=== PATIENT | male | born 1940 | race Hispanic/Latino ===

== ENCOUNTER → 2018-07-17 | Outpatient (CLI) | payer MEDICARE | END | disposition home or self-care (01) | LOC: RAH 13:56 | PROVIDERS: ATTEND Orthopaedic Surgery | DX: S83.242A Other tear of medial meniscus, current injury, left knee, initial encounter (principal); S83.282A Other tear of lateral meniscus, current injury, left knee, initial encounter; X58.XXXA Exposure to other specified factors, initial encounter; Y93.89 Activity, other specified; Y92.89 Other specified places as the place of occurrence of the external cause; Y99.8 Other external cause status | CPT/HCPCS: 73721 ==

== ENCOUNTER 2018-11-24 07:08 | Day surgery (SDC) | payer MEDICARE ==
[2018-11-23 15:45] VITALS: BP 140/66
[2018-11-23 15:57] LABS: BASOPHILS % (AUTO) 0.3 % (0.0-5.0); HEMATOCRIT 42.4 % (42-54); MEAN CORPUSCULAR HEMOGLOBIN 33.1 pg (27.0-33.0); MEAN CORPUSCULAR HGB CONC 34.9 g/dL (32.0-36.0); MEAN CORPUSCULAR VOLUME 94.7 fL (79-99); MONOCYTES % (AUTO) 10.8 % (3.0-13.0); NEUTROPHILS % (AUTO) 71.9 % (40.0-77.0); PLATELET COUNT (AUTO) 181 K/uL (130-400); RED BLOOD CELL COUNT(AUTO) 4.47 MIL/uL (4.50-6.20); RED CELL DISTRIBUTION WIDTH 13.1 % (11.0-15.5)
--- NOTE | 2018-11-23 16:45 | NUR ---
HOME MEDS PATIENT STATES HE ONLY TAKES VITAMINS. INSTRUCTED PATIENT TO BRING THE VITAMINS IN THE MORNING IN ORIGINAL CONTAINERS.
[2018-11-24] VITALS (14 sets, daily range): BP systolic 125–149; BP diastolic 58–87
[~2018-11-24] VITALS: Ht 182.9 cm; Wt 87.4 kg
--- NOTE | 2018-11-24 07:25 | NUR ---
POTENTIAL FOR INFECTION: NO SHAVING NEEDED TO RIGHT KNEE / LEG VOICED PER DORIS FOUNTAIN MA. WIPED WITH GABRIELA: 2% CHLORHEXIDINE GLUCONATE CLOTH PATIENTS PRE-OP SKIN PREP.
[2018-11-24] MEDS ORDERED: FENTANYL CITRATE PF 50 MCG/1 ML 2ML VIAL ONE (08:15)
[2018-11-24] MEDS ORDERED: LIDOCAINE PF 2% 5ML ABBOJECT ONE (08:15)
[2018-11-24] MEDS ORDERED: PROPOFOL 10 MG/ML 20ML VIAL IV ONE (08:15)
[2018-11-24] MEDS ORDERED: LACTATED RINGERS 1000ML 1,000 ML IV ONE (08:29)
[2018-11-24] MEDS: CEFAZOLIN SODIUM 1 GM VIAL IVP SCH ×2 (08:30→09:15)
[2018-11-24] MEDS ORDERED: EPHEDRINE SULFATE 50 MG/ML AMPULE ONE (09:10)
[2018-11-24] MEDS ORDERED: OMEG-143 PO (09:52)
[2018-11-24] MEDS ORDERED: PYRI100T2 PO (09:52)
[2018-11-24] MEDS ORDERED: VITA400C70 PO (09:52)
[2018-11-24] MEDS ORDERED: GLUC-29 PO (09:52)
[2018-11-24] MEDS ORDERED: CHOL200013 PO (09:52)
[2018-11-24] MEDS ORDERED: CALC-1106 PO (09:52)
[2018-11-24] MEDS ORDERED: TYL3 PO (10:18)
[2018-11-24] MEDS ORDERED: CEPH500B PO (10:18)
[2018-11-24] MEDS ORDERED: MEPERIDINE-PF 25 MG/ML SYG ONE (10:37)
[2018-11-24] MEDS ORDERED: ONDANSETRON HCL 4 MG/2 ML VIAL ONE (10:41)
--- NOTE | 2018-11-24 11:19 | NUR ---
RECEIVE PT RECEIVED FROM PACU VIA STRETCHER AWAKE ALERT ORIENTED X3. DRESSING TO LEFT KNEE DRY AND INTACT, NO OOZING NO SWELLING NOTED. LEFT KNEE ELEVATED, ICE PACK APPLIED. PT STATES HE HAS A LITTLE NAUSEA. NO OTHER COMPLAINTS MADE. OFFERED ICE CHIPS. WILL CONTINUE TO MONITOR PT. CALL WEBB WITHIN REACH, FAMILY CAME IN TO ROOM.
--- NOTE | 2018-11-24 11:30 | NUR ---
ASSESS PT VERBALIZED RELIEF FROM NAUSEA AFTER ICE CHIPS, TOLERATED ICE CHIPS WELL. NO VOMITING NOTED.
--- NOTE | 2018-11-24 11:55 | NUR ---
DISCHARGE PT DISCHARGED VIA WHEELCHAIR WITH . PT STABLE. PT COMPLAINED OF MINIMAL NAUSEA EARLIER UPON SITTING UP TO CHANGE CLOTHES. NO VOMITING NOTED. PT CONTINUED WITH ICE CHIPS AND VERBALIZED RELIEF FROM NAUSEA AFTER ICE CHIPS. PT STATED HE IS OKAY AND IS READY TO GO HOME. NO OTHER COMPLAINTS MADE. DISCHARGE INSTRUCTIONS GIVEN TO EARLIER, VERBALIZED UNDERSTANDING. CRUTCHES AND HANDOUT PROVIDED. DRESSING TO LEFT KNEE REMAINS DRY AND INTACT,. NO OOZING NOTED.
== END 2018-11-24 11:55 | disposition home or self-care (01) ==
LOC: DAH 07:08
PROVIDERS: ATTEND Orthopaedic Surgery
DX: M23.222 Derangement of posterior horn of medial meniscus due to old tear or injury, left knee (principal); M23.252 Derangement of posterior horn of lateral meniscus due to old tear or injury, left knee; M94.262 Chondromalacia, left knee; G89.29 Other chronic pain; M17.12 Unilateral primary osteoarthritis, left knee; Z79.899 Other long term (current) drug therapy; Z98.890 Other specified postprocedural states; Z88.8 Allergy status to other drugs, medicaments and biological substances
CPT/HCPCS: 29881; 36415; 85025; A4606; A4649 ×2; A4930; A6223; J0690; J2001; J2175; J2405; J2704; J3010; J3490; J7120

== ENCOUNTER 2019-10-09 09:00 | Observation (INO) | payer OTHER ==
[~2019-10-09] VITALS: Ht 180.3 cm; Wt 79.8 kg
[2019-10-09 09:26] LABS: BASOPHILS % (AUTO) 0.5 % (0.0-5.0); HEMATOCRIT 41.8 % (42-54); LYMPHOCYTES % (AUTO) 25.6 % (21.0-51.0); MEAN CORPUSCULAR HGB CONC 34.4 g/dL (32.0-36.0); MEAN CORPUSCULAR VOLUME 92.9 fL (79-99); NEUTROPHILS % (AUTO) 58.5 % (40.0-77.0); PLATELET COUNT (AUTO) 172 K/uL (130-400); RED CELL DISTRIBUTION WIDTH 12.8 % (11.0-15.5); WHITE BLOOD COUNT (AUTO) 5.5 K/uL (4.8-10.8)
[2019-10-09 09:30] LABS: APPEARANCE,URINE Cloudy (CLEAR); BILIRUBIN,URINE Negative (NEGATIVE); COLOR,URINE Orange (YELLOW); GLUCOSE, URINE (UA) Negative (NEGATIVE); KETONES,URINE Negative (NEGATIVE); LEUKOCYTE ESTERASE ,URINE Small (NEGATIVE); NITRATE,URINE Negative (NEGATIVE); OCCULT BLOOD,URINE Large (NEGATIVE); PH,URINE 6.5 (5.0-8.0); PROTEIN,URINE POS 2+ mg/dL (NEGATIVE)
[2019-10-09 09:39] LABS: INR 1.01 (0.85-1.15); PROTHROMBIN TIME 10.9 SEC (9.6-11.6)
[2019-10-09 09:45] LABS: BACTERIA,URINE Few /HPF (None Seen); RBC,URINE TNTC /HPF (0-1); SQUAMOUS EPITHELIAL CELL,UR 0-2 /HPF (0-2)
[2019-10-09 09:46] VITALS: BP 150/78
--- NOTE | 2019-10-11 13:51 | NUR ---
UA AND URINE CULT(NO GROWTH) COLLECTED 10/09/[address] ROSE, NO NEW ORDERS
[2019-10-12] VITALS (20 sets, daily range): BP systolic 100–150; BP diastolic 59–89
[2019-10-12] MEDS: CEFAZOLIN SODIUM 1 GM VIAL IVP SCH ×4 (06:00→20:13)
[2019-10-12] MEDS ORDERED: LACTATED RINGERS 1000ML 1,000 ML IV ONE (07:05)
[2019-10-12] MEDS ORDERED: CEFAZOLIN SODIUM 1 GM VIAL ONE (08:59)
[2019-10-12] MEDS ORDERED: TRANEXAMIC ACID 1000MG/10ML ONE ×2 (08:59→14:27)
[2019-10-12] MEDS ORDERED: ROPIVACAINE 0.5% 5MG/ML 30ML IJ ONE ×2 (09:07→11:08)
[2019-10-12] MEDS ORDERED: KETAMINE 50MG/ML SYRINGE 50 MG/ML DISP.SYRIN IV ONE (09:08)
[2019-10-12] MEDS ORDERED: ACETAMINOPHEN EXTRA STRENGTH 500 MG TABLET ONE (09:19)
[2019-10-12] MEDS ORDERED: KETOROLAC TROMETHAMINE 15MG/ML ONE (09:19)
[2019-10-12] MEDS ORDERED: CELECOXIB 200 MG CAP ONE (09:20)
[2019-10-12] MEDS ORDERED: EPHEDRINE SULFATE 50 MG/ML AMPULE ONE ×2 (11:17→13:49)
[2019-10-12] MEDS ORDERED: FENTANYL CITRATE PF 50 MCG/1 ML 2ML VIAL ONE (12:05)
[2019-10-12] MEDS ORDERED: ROCURONIUM 10MG/1ML SYR 10 MG/ML ML ONE (12:05)
[2019-10-12] MEDS: ACETAMINOPHEN EXTRA STRENGTH 500 MG TABLET PO SCH ×2 (14:15→21:44)
[2019-10-12] MEDS ORDERED: KETOROLAC TROMETHAMINE 15MG/ML IV PRN (14:15)
[2019-10-12] MEDS ORDERED: FERROUS FUMARATE 324 MG TABLET PO PRN (14:15)
[2019-10-12] MEDS ORDERED: LIDOCAINE HCL-MPF 1% 2ML VIAL IV PRN (14:15)
[2019-10-12] MEDS ORDERED: TEMAZEPAM 15 MG CAPSULE PO PRN (14:15)
[2019-10-12] MEDS ORDERED: POTASSIUM CHLORIDE 20 MEQ ERTAB PO PRN (14:15)
[2019-10-12] MEDS ORDERED: OXYCODONE HCL 5 MG TAB PO PRN ×2 (14:15)
[2019-10-12] MEDS ORDERED: CALCIUM CARBONATE 500 MG TABLET PO PRN (14:15)
[2019-10-12] MEDS ORDERED: POTASSIUM CHLORIDE 20MEQ/100ML 100 ML IV PRN (14:15)
[2019-10-12] MEDS ORDERED: DiphenhydrAMINE HCL 50 MG/ML VIAL IVP PRN (14:15)
[2019-10-12] MEDS ORDERED: POTASSIUM CHLORIDE 10% ELIXIR 20 MEQ/15 ML UDCUP PO PRN (14:15)
[2019-10-12] MEDS: ONDANSETRON HCL 4 MG/2 ML VIAL IVP PRN (15:07)
--- NOTE | 2019-10-12 15:12 | NUR ---
DCP CM spoke to pt's spouse Katie Andrade [phone] discussed dc plans. Per spouse pt is independent prior to surgery, lives at home with spouse, daughter lives close by. Denies any equipment/services. Feels safe to go back home, still drives, spouse and daughter able to assist with transportation and needs as necessry. Discussed MD recommendations regarding home w/HH and DME, spouse agreeable, telephone consent JUNIOR obtained for [facility]. Pt currently still in PACU. Faxed facesheet, order, and MARS to [facility] for now, confirmation received. Pending to fax clinicals and PT once available. Pt pending approval for HH and DME standard walker no wheels and 3 in1 chair. CM to cont to follow up. Addendum: 10/12/19 at 1516 by AL MCCRACKEN LVN CM Amended: Links added.
--- NOTE | 2019-10-12 15:15 | NUR ---
Notified Francis Cho CRNA of pulse substaining in 50's , patient symptomatic vitals signs stable no new orders.
--- NOTE | 2019-10-12 16:37 | NUR ---
1547 patient signed CARLSON Letter, I faxed CARLSON Letter to [phone] and placed in chart under consent tab.
--- NOTE | 2019-10-12 16:49 | NUR ---
CM Note: HCD pending HH approval and DME approval & delivery CM faxed H&P, progress notes to [facility], confirmation received. Pt pending approval for Home Health as well as pending approval and delivery for standard walker no wheels and 3 in 1 chair. Primary nurse aware. CM to cont to follow up.
[2019-10-12] MEDS: SODIUM CHLORIDE 0.9% 1000ML 1,000 ML IV SCH ×2 (17:46→20:14)
[2019-10-12] MEDS: PREGABALIN 25 MG CAP PO SCH (20:13)
[2019-10-12] MEDS: CELECOXIB 200 MG CAP PO SCH (20:13)
[2019-10-12] MEDS: FAMOTIDINE 20MG TAB 20 MG TAB PO SCH (20:13)
[2019-10-12] MEDS: ASPIRIN 81MG TAB.CHEW PO SCH (20:14)
--- NOTE | 2019-10-12 21:45 | NUR ---
PT DANGLED AT BEDSIDE PT DANGLED AT BEDSIDE. PT GOT NAUSEOUS. PT REFUSED NAUSEA MEDICATION AND STATED THAT HE WANTED TO LIE BACK DOWN. PT DANGLED FOR APPROXIMATELY 10 MIN.
[2019-10-13] VITALS: BP 107/49
[2019-10-13 04:00] VITALS: BP 104/52
[2019-10-13] MEDS: CEFAZOLIN SODIUM 1 GM VIAL IVP SCH (04:45)
--- NOTE | 2019-10-13 05:00 | NUR ---
PT HAS NOT VOIDED. PT HAS NOT VOIDED POST SURGERY. PT STATES HE FEELS PRESSURE IN THE SUPRAPUBIC AREA. USING INFANT BABYSITTER, INSERTED 16F SOW TO RELIEVE PRESSURE AND REMOVE URINE. WILL LEAVE IN TO ALLOW BLADDER TO DRAIN.
[2019-10-13 05:20] LABS: HEMATOCRIT 33.3 % (42-54); MEAN CORPUSCULAR HEMOGLOBIN 31.4 pg (27.0-33.0); MEAN CORPUSCULAR HGB CONC 33.6 g/dL (32.0-36.0); MEAN CORPUSCULAR VOLUME 93.3 fL (79-99); RED BLOOD CELL COUNT(AUTO) 3.57 MIL/uL (4.50-6.20); RED CELL DISTRIBUTION WIDTH 12.9 % (11.0-15.5)
[2019-10-13 05:34] LABS: CREATININE 1.2 mg/dL (0.5-1.5); POTASSIUM 4.1 mmol/L (3.5-5.1)
--- NOTE | 2019-10-13 06:00 | NUR ---
SOW CATH REMOVED SOW CATH REMOVED. PT DRAINED 1300MLS FROM INITIAL INSERTION OF SOW CATH. PT STATES HE FEEL RELIEF OF PRESSURE.
[2019-10-13] MEDS: ONDANSETRON HCL 4 MG/2 ML VIAL IVP PRN (07:00)
[2019-10-13] MEDS: ACETAMINOPHEN EXTRA STRENGTH 500 MG TABLET PO SCH ×3 (07:01→21:46)
[2019-10-13] MEDS: TRAMADOL HCL 50 MG TABLET PO PRN (07:02)
[2019-10-13 08:01] VITALS: BP 107/58
[2019-10-13] MEDS: CELECOXIB 200 MG CAP PO SCH ×2 (09:33→21:46)
[2019-10-13] MEDS: FAMOTIDINE 20MG TAB 20 MG TAB PO SCH ×2 (09:34→21:45)
[2019-10-13] MEDS: PREGABALIN 25 MG CAP PO SCH ×2 (09:34→21:46)
[2019-10-13] MEDS: POLYETHYLENE GLYCOL 3350 17 GM POWD.PACK PO SCH (09:34)
[2019-10-13] MEDS: TAMSULOSIN HCL 0.4 MG CAP.ER.24H PO SCH (09:34)
[2019-10-13] MEDS: ASPIRIN 81MG TAB.CHEW PO SCH ×2 (09:34→21:45)
[2019-10-13] MEDS: SODIUM CHLORIDE 0.9% 1000ML 1,000 ML IV SCH (10:14)
[2019-10-13 11:43] VITALS: BP 99/45
--- NOTE | 2019-10-13 13:05 | NUR ---
CM NOTE [facility] States DME was delivered to patient yesterday. CM asked if home health approved. States she will page nurse to call CM back and verify.
[2019-10-13 16:02] VITALS: BP 91/46
--- NOTE | 2019-10-13 16:14 | NUR ---
PATIENT VOIDED 400 CC CLEAR YELLOW URINE.
--- NOTE | 2019-10-13 16:26 | NUR ---
HOME HEALTH CM spoke to Sherrie with [facility]. [facility] pt has been accepted. [facility] pt is scheduled to be seen tomorrow.
[2019-10-13 20:00] VITALS: BP 90/50
[2019-10-14] VITALS: BP 102/63
[2019-10-14 04:00] VITALS: BP 108/70
[2019-10-14 08:11] VITALS: BP 119/67
[2019-10-14] MEDS: TRAMADOL HCL 50 MG TABLET PO PRN (08:23)
[2019-10-14] MEDS: PREGABALIN 25 MG CAP PO SCH (09:26)
[2019-10-14] MEDS: TAMSULOSIN HCL 0.4 MG CAP.ER.24H PO SCH (09:26)
[2019-10-14] MEDS: POLYETHYLENE GLYCOL 3350 17 GM POWD.PACK PO SCH (09:26)
[2019-10-14] MEDS: FAMOTIDINE 20MG TAB 20 MG TAB PO SCH (09:26)
[2019-10-14] MEDS: CELECOXIB 200 MG CAP PO SCH (09:26)
[2019-10-14] MEDS: ASPIRIN 81MG TAB.CHEW PO SCH (09:26)
[2019-10-14 10:56] VITALS: BP 100/64
[2019-10-14] MEDS: ACETAMINOPHEN EXTRA STRENGTH 500 MG TABLET PO SCH (14:42)
[2019-10-14 16:18] VITALS: BP 109/66
[2019-10-14] MEDS ORDERED: HYDR-4457 PO (16:23)
[2019-10-14] MEDS ORDERED: ASPI-1005 PO (16:23)
--- NOTE | 2019-10-14 18:00 | NUR ---
DISCHARGE PATIENT GIVEN DISCHARGE INSTRUCTIONS AND EDUCATION ON FOLLOW UP APPOINTMENTS AND TO CALL TOMORROW FOR APPOINTMENT, [facility], RX( [facility]CO, [facility]), PATIENT WBAT WITH WALKER, S/S OF INFECTION TO REPORT. PATIENT VERBALIZED UNDERSTANDING OF ALL EDUCATION GIVEN VIA TEACH BACK, EDUCATIONAL MATERIAL PROVIDED. IV DISCONTINUED CATHETER INTACT. PATIENT LEFT VIA WHEELCHAIR, PCP AT SIDE. NO DISTRESS NOTED UPON DISCHARGE. ALL BELONGINGS TAKEN WITH. REPORT GIVEN TO KAMLESH FRANCO RN FROM [facility], NO CONCERNS VOICED. KAMLESH AWARE OF FOLLOW UP APPOINTMENT, [facility] (REMOVAL ON 10/19/19), RX( [facility]CO, [facility]), PATIENT WBAT WITH WALKER, S/S OF INFECTION TO REPORT
[2019-10-15] MEDS ORDERED: BISACODYL 10 MG SUPP.RECT RC PRN (14:15)
== END 2019-10-14 18:50 | disposition home or self-care (01) ==
LOC: EDSTATUS 09:00 → DAHIP 10-12 05:48 → 3BH 10-12 15:34 → 3DH 10-12 20:30
PROVIDERS: ADMIT Orthopaedic Surgery; ATTEND Orthopaedic Surgery
DX: M17.11 Unilateral primary osteoarthritis, right knee (principal); M21.061 Valgus deformity, not elsewhere classified, right knee; Z90.49 Acquired absence of other specified parts of digestive tract; Z90.89 Acquired absence of other organs; Z91.018 Allergy to other foods
CPT/HCPCS: 27447; 36415 ×2; 80048; 81001; 82948 ×2; 85025; 85027; 85610; 87088; 87641; 96374; 96375; 96376; 97039 ×2; 97116 ×2; 97161; A4213; A4215; A4221; A4222; A4223; A4344; A4649 ×3; A4663; A4930; A5120; A9272; C1776; G0378 ×52; G8978; G8979; G8980; G8981; G8982; G8983; J0690 ×4; J1885; J2405 ×3; J2795 ×2; J3010; J3490 ×5; J7030; J7120 ×2

== ENCOUNTER 2019-11-29 05:43 | Day surgery (SDC) | payer OTHER ==
[2019-11-28 14:50] VITALS: BP 141/71; PULSE 80; RESP 20; TEMP 97.4
--- NOTE | 2019-11-28 15:00 | NUR ---
UA FAXED AND REPORTED ABNORMAL UA AND SUSCEPTIBILITY REPORT TO MELISSA AT DR. CARDENAS OFFICE. SHE WILL INFORM HIM
--- NOTE | 2019-11-28 15:10 | NUR ---
EKG INFORMED DR. HAMILTON OF EKG. NO ORDERS RECEIVED. PROCEED WITH PLANNED PROCEDURE.
[2019-11-29] VITALS (15 sets, daily range): BP systolic 15–140; BP diastolic 42–87; PULSE 58–73; RESP 8–22; TEMP 96.4–98.1
[~2019-11-29] VITALS: Ht 182.9 cm; Wt 83.5 kg
[~2019-11-29 05:43] MED LIST: CEFTRIAXONE SODIUM 1 GM IVP SCH
[2019-11-29] MEDS ORDERED: MEROPENEM 500 MG VIAL IVP SCH ×2 (06:00→06:45)
[2019-11-29] MEDS ORDERED: LACTATED RINGERS 1000ML 0 ML IV ONE (06:32)
[2019-11-29] MEDS ORDERED: GENTAMICIN SULFATE 360 MG in SODIUM CHLORIDE 0.9% 100 ML IV SCH (06:45)
[2019-11-29] MEDS ORDERED: LIDOCAINE PF 2% 5ML ABBOJECT ONE (07:41)
[2019-11-29] MEDS ORDERED: DEXAMETHASONE SOD PHOSPHATE 10MG/ML 1ML VIAL ONE (07:41)
[2019-11-29] MEDS ORDERED: MIDAZOLAM HCL 1 MG/ML 2ML VIAL ONE (07:41)
[2019-11-29] MEDS ORDERED: GLYCOPYRROLATE 1 MG/5 ML SYRINGE ONE (07:42)
[2019-11-29] MEDS ORDERED: PROPOFOL 10 MG/ML 20ML VIAL IV ONE (07:42)
[2019-11-29] MEDS ORDERED: ONDANSETRON HCL 4 MG/2 ML VIAL ONE (07:42)
[2019-11-29] MEDS ORDERED: ROCURONIUM 10MG/1ML SYR 10 MG/ML ML ONE (07:42)
[2019-11-29] MEDS ORDERED: NEOSTIGMINE 5MG/5ML SYR IV ONE (07:42)
[2019-11-29] MEDS ORDERED: FENTANYL CITRATE PF 50 MCG/1 ML 2ML VIAL ONE (07:42)
[2019-11-29] MEDS ORDERED: EPHEDRINE SULFATE 50 MG/ML AMPULE ONE (08:41)
[2019-11-29] MEDS ORDERED: SODIUM CHLORIDE 0.9% 1000ML 0 ML IV ONE (09:15)
--- NOTE | 2019-11-29 11:45 | NUR ---
TAPE REMOVED FROM SOW CATH. LEG STRAP AND LEG BAG APPLIED MAINTAINING TENSION ON CATH ORDERED. URINE IS CLEAR AND PINK TINGED. 1000ML URINE EMPTIED FROM SOW BAG. PT GIVEN INSTRUCTION AND DEMO ON SOW CARE AT HOME. GIVEN A GRAVITY DRAINAGE BAG TO TAKE HOME AND USE IN PM. VERBALIZED UNDERSTANDING.
--- NOTE | 2019-11-29 12:30 | NUR ---
PT DISCHARGED HOME .. PRINTED AND VERBAL INSTRUCTIONS GIVEN TO PT AND TO HIS ON PHONE. BOTH VERBALIZE UNDERSTANDING. TO CART VIA WHEELCHAIR. NO ACUTE DISTRESS NOTED
== END 2019-11-29 12:30 | disposition home or self-care (01) ==
LOC: DAH 05:43
PROVIDERS: ATTEND Urology
DX: N40.1 Benign prostatic hyperplasia with lower urinary tract symptoms (principal); R33.9 Retention of urine, unspecified; E78.5 Hyperlipidemia, unspecified; E03.9 Hypothyroidism, unspecified; M19.90 Unspecified osteoarthritis, unspecified site; Z96.651 Presence of right artificial knee joint; Z11.59 Encounter for screening for other viral diseases; Z79.01 Long term (current) use of anticoagulants; Z98.890 Other specified postprocedural states
CPT/HCPCS: 36415; 52648; 71045; 80048; 81001; 85025; 85610; 85730; 87077; 87088; 87186; 93005; A4215; A4216; A4221; A4222; A4223 ×3; A4354; A4600; A4606; A4663; J1100; J1580; J2001; J2185 ×2; J2250; J2405; J2704; J2710; J3010; J3490 ×2; J7030 ×2; J7120; U0003

== ENCOUNTER → 2020-10-20 | Outpatient (CLI) | payer OTHER ==
[~2020-10-20] MED LIST changes: -CEFTRIAXONE SODIUM 1 GM IVP SCH; +TAMS-1 PO
== END | disposition home or self-care (01) ==
LOC: RAH 10:19
PROVIDERS: ATTEND Orthopaedic Surgery
DX: S46.012A Strain of muscle(s) and tendon(s) of the rotator cuff of left shoulder, initial encounter (principal); S46.912A Strain of unspecified muscle, fascia and tendon at shoulder and upper arm level, left arm, initial encounter; X58.XXXA Exposure to other specified factors, initial encounter; Y93.89 Activity, other specified; Y92.89 Other specified places as the place of occurrence of the external cause; Y99.8 Other external cause status
CPT/HCPCS: 73221

== ENCOUNTER 2020-12-17 09:24 | Day surgery (SDC) | payer OTHER ==
[2020-12-12 11:38] LABS: BASOPHILS % (AUTO) 0.4 % (0.0-5.0); EOSINOPHILS % (AUTO) 0.9 % (0.0-8.0); HEMATOCRIT 41.8 % (42-54); LYMPHOCYTES % (AUTO) 20.6 % (21.0-51.0); MEAN CORPUSCULAR HEMOGLOBIN 31.8 pg (27.0-33.0); MEAN CORPUSCULAR HGB CONC 34.4 g/dL (32.0-36.0); MEAN CORPUSCULAR VOLUME 92.3 fL (79-99); MONOCYTES % (AUTO) 10.4 % (3.0-13.0); PLATELET COUNT (AUTO) 189 K/uL (130-400); RED BLOOD CELL COUNT(AUTO) 4.53 MIL/uL (4.50-6.20); RED CELL DISTRIBUTION WIDTH 12.4 % (11.0-15.5); WHITE BLOOD COUNT (AUTO) 6.8 K/uL (4.8-10.8)
[2020-12-12 11:52] LABS: CREATININE 0.9 mg/dL (0.5-1.5); POTASSIUM 4.6 mmol/L (3.5-5.1)
[2020-12-16 13:25] VITALS: BP 158/69
[2020-12-17] VITALS (16 sets, daily range): BP systolic 117–143; BP diastolic 56–77
[~2020-12-17] VITALS: Ht 182.9 cm; Wt 86.9 kg
[~2020-12-17 09:24] MED LIST changes: +LACTATED RINGERS 1000ML 1,000 ML IV ONE
[2020-12-17] MEDS: CEFAZOLIN SODIUM 1 GM VIAL IVP ONE ×2 (09:59→14:45)
[2020-12-17] MEDS ORDERED: EPINEPHRINE 1 MG/ML 30ML VIAL IJ ONE (13:44)
[2020-12-17] MEDS ORDERED: ROPIVACAINE 0.5% 5MG/ML 30ML IJ ONE ×2 (13:51→13:52)
[2020-12-17] MEDS ORDERED: LIDOCAINE PF 100MG/5ML (2%) SYRINGE 5ML ONE (13:52)
[2020-12-17] MEDS ORDERED: PROPOFOL 10 MG/ML 20ML VIAL IV ONE (13:52)
[2020-12-17] MEDS ORDERED: ROCURONIUM 10MG/1ML SYR 10 MG/ML ML ONE (13:52)
[2020-12-17] MEDS ORDERED: PHENYLEPHRINE HCL 10 MG/ML 1ML VIAL IV ONE ×2 (14:30→15:51)
[2020-12-17] MEDS ORDERED: ONDANSETRON 4MG INJ ONE (14:34)
[2020-12-17] MEDS ORDERED: DEXAMETHASONE SOD PHOSPHATE 10MG/ML 1ML VIAL ONE (14:34)
[2020-12-17] MEDS ORDERED: EPHEDRINE SULFATE 50 MG/ML AMPULE ONE (14:43)
[2020-12-17] MEDS ORDERED: GLYCOPYRROLATE 1 MG/5 ML SYRINGE ONE (16:48)
[2020-12-17] MEDS ORDERED: NEOSTIGMINE 5MG/5ML SYR IV ONE (16:48)
[2020-12-17] MEDS ORDERED: HYDR-4060 PO (17:10)
[2020-12-17] MEDS ORDERED: CEPH500B PO (17:10)
== END 2020-12-17 18:50 | disposition home or self-care (01) ==
LOC: DAH 09:24
PROVIDERS: ATTEND Orthopaedic Surgery
DX: S46.012A Strain of muscle(s) and tendon(s) of the rotator cuff of left shoulder, initial encounter (principal); Z20.822 Contact with and (suspected) exposure to COVID-19; M19.012 Primary osteoarthritis, left shoulder; M17.0 Bilateral primary osteoarthritis of knee; E78.5 Hyperlipidemia, unspecified; E03.9 Hypothyroidism, unspecified; E66.3 Overweight; Z79.82 Long term (current) use of aspirin; Z79.890 Hormone replacement therapy; Z79.899 Other long term (current) drug therapy; Z98.890 Other specified postprocedural states; Z90.49 Acquired absence of other specified parts of digestive tract; Z90.89 Acquired absence of other organs; Z82.49 Family history of ischemic heart disease and other diseases of the circulatory system; Z83.3 Family history of diabetes mellitus; Z82.3 Family history of stroke; Z68.26 Body mass index [BMI] 26.0-26.9, adult; W19.XXXA Unspecified fall, initial encounter; Y93.89 Activity, other specified; Y92.89 Other specified places as the place of occurrence of the external cause
CPT/HCPCS: 29824; 29826; 29827; 36415; 64415; 76942; 80048; 85025; 87635; A4215; A4221; A4222; A4223; A4565; A4600; A4649 ×6; A4663; A4930 ×2; A5120; A6204; C1713 ×2; C9803; G0168; J0171; J0690; J1100; J2001; J2370 ×2; J2405; J2704; J2710; J2795 ×2; J3490 ×2; J7120 ×2

== ENCOUNTER → 2021-09-24 | Outpatient (CLI) | payer OTHER ==
[~2021-09-24] MED LIST changes: +CEPH500B PO; +HYDR-4060 PO; -LACTATED RINGERS 1000ML 1,000 ML IV ONE; -TAMS-1 PO
== END | disposition home or self-care (01) ==
LOC: RAH 10:35
PROVIDERS: ATTEND Physical Medicine & Rehabilitation
DX: M48.02 Spinal stenosis, cervical region (principal); M50.21 Other cervical disc displacement, high cervical region; Z88.8 Allergy status to other drugs, medicaments and biological substances
CPT/HCPCS: 72141

== ENCOUNTER → 2021-10-02 | Outpatient (CLI) | payer OTHER | END | disposition home or self-care (01) | LOC: RAH 12:17 | PROVIDERS: ATTEND Internal Medicine Cardiovascular Disease | DX: Z01.818 Encounter for other preprocedural examination (principal); M48.02 Spinal stenosis, cervical region; J98.6 Disorders of diaphragm | CPT/HCPCS: 71046 ==

== ENCOUNTER → 2021-11-09 | Outpatient (CLI) | payer OTHER | END | disposition home or self-care (01) | LOC: RAH 09:57 | PROVIDERS: ATTEND Neurological Surgery | DX: M47.812 Spondylosis without myelopathy or radiculopathy, cervical region (principal); M43.22 Fusion of spine, cervical region; Z98.1 Arthrodesis status | CPT/HCPCS: 72040 ==

== ENCOUNTER 2022-08-03 11:09 | Emergency (ER) | payer OTHER ==
[~2022-08-03] VITALS: Ht 182.9 cm; Wt 84.8 kg
[2022-08-03 11:30] VITALS: BP 134/78
== END 2022-08-03 14:04 | disposition home or self-care (01) ==
LOC: EDH 11:09
DX: R22.42 Localized swelling, mass and lump, left lower limb (principal); Z91.018 Allergy to other foods; Z88.8 Allergy status to other drugs, medicaments and biological substances; M79.605 Pain in left leg
CPT/HCPCS: 93971

== ENCOUNTER → 2023-08-22 | Outpatient (CLI) | payer OTHER | END | disposition home or self-care (01) | LOC: RAH 10:08 | PROVIDERS: ATTEND Physician Assistant | DX: M47.817 Spondylosis without myelopathy or radiculopathy, lumbosacral region (principal); M54.51 Vertebrogenic low back pain | CPT/HCPCS: 72114 ==

== ENCOUNTER → 2024-08-06 | Outpatient (CLI) | payer OTHER | END | disposition home or self-care (01) | LOC: SHCH 13:11 | PROVIDERS: ATTEND Internal Medicine Cardiovascular Disease | DX: R94.31 Abnormal electrocardiogram [ECG] [EKG] (principal) | CPT/HCPCS: 93306 ==